=== PATIENT | female | born 1955 | race Caucasian/White ===

== ENCOUNTER 2017-05-08 21:42 | Inpatient (IN) ==
[2017-05-08 23:08] LABS: MANUAL DIFF NEEDED? NO
[2017-05-08 23:11] LABS: BASO% 0.3 % (0.0-0.8); EOS# 0.23 X1000 (0.0-0.7); EOS% 1.9 % (0.0-10.0); HEMATOCRIT 44.9 % (37.0-47.0); HEMOGLOBIN 14.7 g/dL (12.0-16.0); IMM GRAN# 0.02 X1000 (0.0-0.04); IMM GRAN% 0.2 % (0.0-0.5); LYMPH% 33.8 % (20.5-51.1); MCH 29.8 PG (27-31); MCHC 32.7 g/dL (33-37); MCV 91.1 FL (81-99); MONO# 1.18 X1000 (0.11-0.59); MPV 9.5 FL (7.4-10.4); NEUT% 53.8 % (42.2-75.2); PLT 373 X1000 (130-400); RBC 4.93 XMIL (4.2-5.4)
[2017-05-08 23:40] LABS: AGAP 14; ALBUMIN 4.4 g/dL (3.5-5.0); ALKALINE PHOSPHATASE 109 U/L (32-104); BUN 11 mg/dL (8-22); CALCIUM 9.7 mg/dL (8.8-10.2); CHLORIDE 103 mmol/L (98-107); CK PROFILE 97 U/L (24-173); COSMO 287; GOT 14 U/L (10-30); GPT 9 U/L (10-36); MAGNESIUM 2.4 mg/dL (1.5-2.7); POTASSIUM 4.6 mmol/L (3.5-5.1); SODIUM 144 mmol/L (136-145); TCO2 27 mmol/L (25-35); TOTAL BILIRUBIN 0.23 mg/dL (0.20-1.00); TOTAL PROTEIN 8.3 g/dL (6.3-8.3)
[2017-05-09] MEDS ORDERED: NS 1,000 ML IV ONE ×3 (00:53→04:53)
[2017-05-09] MEDS ORDERED: NORCO-5 PO ONE (01:08)
[2017-05-09] MEDS ORDERED: ZOFRAN IV PRN (04:53)
[2017-05-09] MEDS ORDERED: DOPAMINE 400 MG/D5W 400 MG/500 ML IV.SOLN IV SCH (05:28)
[2017-05-09] MEDS ORDERED: CORTROSYN IV ONE (09:15)
--- NOTE | 2017-05-09 09:59 | Diag Imaging Result Doc PS360 ---
CHEST-PORTABLE - 05/09/2017 INDICATION: dyspnea TECHNIQUE: COMPARISON: None FINDINGS: The lungs are normally expanded and clear. Heart size and mediastinal contours are normal. No pneumothorax or pleural effusion. IMPRESSION: Negative exam. Electronically signed by Ezequiel Alan 05/09/2017 9:56 AM
[2017-05-09] MEDS: TYLENOL PO PRN (11:07)
[2017-05-09 11:39] LABS: UR AMPHETAMINES QUAL NONE DETECTED (NONE DETECT); UR BARBITUATES QUAL NONE DETECTED (NONE DETECT); UR BENZODIAZEPIN QUAL NONE DETECTED (NONE DETECT); UR CANNABINOIDS QUAL NONE DETECTED (NONE DETECT); UR COCAINE QUAL NONE DETECTED (NONE DETECT); UR METHADONE QUAL NONE DETECTED (NONE DETECT); UR OPIATES QUAL NONE DETECTED (NONE DETECT); UR OXYCODONE QUAL NONE DETECTED (NONE DETECT); UR PCP QUAL NONE DETECTED (NONE DETECT)
[2017-05-09] MEDS: SOLU-CORTEF IV SCH ×2 (11:54→19:48)
[2017-05-09] MEDS ORDERED: NS 500 ML IV ONE (13:29)
[2017-05-09 17:48] LABS: URINE MICRO REVIEW NEEDED? NO; URINE SOURCE CLEAN CATCH
[2017-05-09 17:55] LABS: BILIRUBIN URINE NEGATIVE (NEGATIVE); BLOOD URINE SMALL (NEGATIVE); COLOR YELLOW; GLUCOSE URINE NEGATIVE (NEGATIVE); LEUKOCYTES URINE LARGE (NEGATIVE); NITRITE URINE NEGATIVE (NEGATIVE); PH URINE 6.5; PROTEIN URINE NEGATIVE (NEGATIVE); SP GRAVITY URINE 1.005; TURBIDITY URINE CLEAR (CLEAR); UROBILINOGEN URINE NORMAL (NORMAL)
[2017-05-09 17:56] LABS: UR EPITHELIAL CELLS <10 /HPF (<10); URINE BACTERIA NEGATIVE /HPF; URINE CULTURE NEEDED? YES; URINE RBC <10 /HPF (<10); URINE WBC TNTC /HPF (<10)
[2017-05-10] MEDS: SOLU-CORTEF IV SCH ×3 (03:40→20:38)
[2017-05-10 04:33] LABS: HEMATOCRIT 37.9 % (37.0-47.0); HEMOGLOBIN 12.4 g/dL (12.0-16.0); MCH 30.2 PG (27-31); MCHC 32.7 g/dL (33-37); MCV 92.2 FL (81-99); MPV 9.1 FL (7.4-10.4); RBC 4.11 XMIL (4.2-5.4)
[2017-05-10 05:13] LABS: AGAP 12; BUN 10 mg/dL (8-22); CALCIUM 8.6 mg/dL (8.8-10.2); CHLORIDE 108 mmol/L (98-107); COSMO 283; POTASSIUM 3.7 mmol/L (3.5-5.1); SODIUM 142 mmol/L (136-145); TCO2 22 mmol/L (25-35)
--- NOTE | 2017-05-10 05:47 | EKG Report ---
Test Performed on : 05/08/2017 9:52:47 PM Test Reason : SYNCOPE Blood Pressure : / mmHG Vent. Rate : 071 BPM Atrial Rate : 071 BPM P-R Int : 178 ms QRS Dur : 084 ms QT Int : 388 ms P-R-T Axes : 024 -22 011 degrees QTc Int : 421 ms Sinus rhythm. with occasional premature ventricular complexes. Otherwise normal ECG No previous ECGs available Unconfirmed Result
[2017-05-10] MEDS ORDERED: CORTROSYN IV ONE (06:00)
[2017-05-10] MEDS: ROCEPHIN 1 GM in NS 50 ML IV SCH (14:33)
[2017-05-10] MEDS: DIFLUCAN PO SCH (14:34)
--- NOTE | 2017-05-10 15:55 | ECHO REPORT ---
ORDER DATE: 05/09/2017 MEASUREMENTS: Left ventricular end-diastolic diameter 4.0, end systolic 2.7, septal thickness 1.2, posterior wall thickness 1.2. SUMMARY: 1. Technically difficult study due to limited acoustic window quality particularly apical window quality. 2. Aortic valve is trileaflet and opens normally on 2-dimensional images. There is trace aortic regurgitation. Mitral, tricuspid, and pulmonic valves are without structural abnormality with mild tricuspid regurgitation and trace pulmonic insufficiency. The estimated systolic PA pressure by Doppler is 25 mmHg. Aortic root is normal size. 3. Normal left ventricular chamber size with mild concentric left hypertrophy is demonstrated. Estimated left ejection fraction approximately 65%. No regional wall motion abnormalities are evident. Doppler suggests grade 1 left ventricular diastolic dysfunction. Left atrium is mildly enlarged. Right atrium, right ventricle are normal size with normal right ventricular systolic function. 4. No pericardial effusion. 5. Appearance of inferior vena cava suggests normal central venous pressure. CONCLUSIONS: 1. Technically difficult study. 2. Mild tricuspid regurgitation with estimated systolic PA pressure 25 mmHg. 3. Mild concentric left hypertrophy with estimated left ventricular ejection fraction 65%. 4. Grade 1 left ventricular diastolic dysfunction suggested. 5. Mild left atrial enlargement. cc: MD Bharathi Oconnell MD
[2017-05-10] MEDS: TYLENOL PO PRN (22:18)
[2017-05-11] MEDS: SOLU-CORTEF IV SCH ×3 (04:25→20:38)
[2017-05-11 06:30] LABS: MANUAL DIFF NEEDED? NO
[2017-05-11 06:45] LABS: BASO% 0.2 % (0.0-0.8); EOS# 0.04 X1000 (0.0-0.7); EOS% 0.5 % (0.0-10.0); HEMATOCRIT 39.7 % (37.0-47.0); HEMOGLOBIN 12.9 g/dL (12.0-16.0); IMM GRAN# 0.02 X1000 (0.0-0.04); IMM GRAN% 0.2 % (0.0-0.5); LYMPH# 2.21 X1000 (1.2-3.4); LYMPH% 25.5 % (20.5-51.1); MCH 29.9 PG (27-31); MCHC 32.5 g/dL (33-37); MCV 92.1 FL (81-99); MONO% 9.2 % (1.7-9.3); MPV 9.4 FL (7.4-10.4); NEUT% 64.4 % (42.2-75.2); PLT 302 X1000 (130-400); RBC 4.31 XMIL (4.2-5.4)
[2017-05-11 07:02] LABS: AGAP 12; BUN 12 mg/dL (8-22); CALCIUM 9.1 mg/dL (8.8-10.2); CHLORIDE 107 mmol/L (98-107); COSMO 289; POTASSIUM 3.9 mmol/L (3.5-5.1); SODIUM 145 mmol/L (136-145); TCO2 26 mmol/L (25-35)
[2017-05-11] MEDS ORDERED: ATIVAN IV ONE (08:51)
[2017-05-11] MEDS: DIFLUCAN PO SCH (09:10)
--- NOTE | 2017-05-11 10:19 | Diag Imaging Result Doc PS360 ---
EXAM: MRI BRAIN/SELLA TURCICA W W/O CONTRAST INDICATION: r/o pituitary adenoma COMPARISON: None. FINDINGS: There is no evidence of acute infarct. The deep white matter signal is unremarkable. There is no discrete intracranial mass, mass effect, or intracranial hemorrhage. There is no evidence of abnormal intracranial enhancement. There is trace fluid in the mastoid air cells on the left. Surrounding soft tissues and bony structures are essentially unremarkable, otherwise. Review of the sella turcica reveals normal pituitary enhancement. No pituitary mass is identified to indicate an adenoma. The pituitary stalk is midline. The adjacent optic nerves are unremarkable. IMPRESSION: No evidence of pituitary adenoma and essentially unremarkable brain, otherwise. Electronically signed by Rafael Kuo 05/11/2017 10:16 AM
[2017-05-11] MEDS: ROCEPHIN 1 GM in NS 50 ML IV SCH (13:40)
[2017-05-11] MEDS: TYLENOL PO PRN (15:36)
[2017-05-12] MEDS: SOLU-CORTEF IV SCH ×2 (03:24→11:18)
[2017-05-12 07:54] VITALS: BP 115/83
[2017-05-12] MEDS: DIFLUCAN PO SCH (09:00)
[2017-05-12] MEDS: TYLENOL PO PRN (11:19)
[2017-05-12] MEDS: ROCEPHIN 1 GM in NS 50 ML IV SCH (13:14)
== END 2017-05-12 15:41 | disposition home or self-care (01) ==
LOC: ICU 21:42 → ED 21:42 → OBSVTOIN 05-09 04:51 → SUATTDRO 05-09 04:51 → 3N 05-10 17:42
PROVIDERS: ATTEND Emergency Medicine